=== PATIENT | female | born 1985 | race American Indian/Alaskan Native ===

== ENCOUNTER 2017-11-04 17:44 | Emergency (ER) | payer OTHER ==
[2017-11-04 17:51] VITALS: BP 121/78
[2017-11-04] MEDS ORDERED: BOOSTRIX IM ONE (19:07)
--- NOTE | 2017-11-04 19:09 | Emergency Department Report ---
HPI - General Chief Complaint: Wound/Laceration Time Seen by Provider: 11/04/17 19:07 - HPI HPI: She states she cut left thumb while cleaning her fridge, suffered one centimeters superficial left thumb distal tip laceration. She was worried there might have been a piece of glass in the injury so she presented to ED. ED Past Medical Hx - Past Medical History Previous Medical History?: No Hx Hypertension: No Hx CVA: No - Surgical History Past Surgical History?: No - Social History Smoking Status: Never Smoker Substance Use Type: None ED Review of Systems ROS: Stated complaint: LACERATION Other details as noted in HPI Comment: All other systems reviewed and negative Eyes: denies: eye pain ENT: denies: ear pain Musculoskeletal: joint swelling Skin: other (left thumb laceration) Physical Exam - Physical Exam Vital Signs: Vital Signs 11/04/17 17:48 Temperature 98.5 F Pulse Rate 85 Respiratory 16 Rate Blood Pressure 121/78 O2 Sat by Pulse 99 Oximetry Physical Exam: Gen. alert and oriented 3 in no distress Head atraumatic normocephalic Eyes PERR LA EOMI Chest regular rate and rhythm normal S1-S2 lungs clear bilaterally Abdomen soft nondistended Back no point tenderness paravertebral tenderness Neuro no focal deficit. Psych normal mood. : Skin: Distal left thumb tip laceration superficial 1 cm. ED Course Vital Signs 11/04/17 17:48 Temperature 98.5 F Pulse Rate 85 Respiratory 16 Rate Blood Pressure 121/78 O2 Sat by Pulse 99 Oximetry - Reevaluation(s) Reevaluation #2: 11/04/17 19:08 Left thumb area clean in the sterile manner, look for foreign body without any found. Critical care attestation.: If time is entered above; I have spent that time in minutes in the direct care of this critically ill patient, excluding procedure time. ED Disposition Clinical Impression: Finger laceration Qualifiers: Encounter type: initial encounter Finger: thumb Damage to nail status: without damage Foreign body presence: without foreign body Laterality: left Qualified Code(s): S61.012A - Laceration without foreign body of left thumb without damage to nail, initial encounter Disposition: DC-01 TO HOME OR SELFCARE Is pt being admited?: No Does the pt Need Aspirin: No Condition: Stable
== END 2017-11-04 19:39 | disposition home or self-care (01) ==
LOC: ED 17:44
DX: S61.012A Laceration without foreign body of left thumb without damage to nail, initial encounter (principal); W45.8XXA Other foreign body or object entering through skin, initial encounter; Y93.89 Activity, other specified; Y92.89 Other specified places as the place of occurrence of the external cause; Y99.8 Other external cause status
CPT/HCPCS: 90471; 90715; 99282